=== PATIENT | female | born 1955 | race Caucasian/White ===

== ENCOUNTER 2018-01-08 05:28 | Inpatient (IN) | payer BC ==
[2018-01-03 11:38] LABS: BASOPHILS # (AUTO) 0.1 X10'3 (0-0.2); BASOPHILS % (AUTO) 1.2 % (0-1); EOSINOPHILS # (AUTO) 0.5 X10'3 (0-0.9); EOSINOPHILS % (AUTO) 6.1 % (0-6); LYMPHOCYTES # (AUTO) 2.6 X10'3 (1.1-4.8); LYMPHOCYTES % (AUTO) 32.4 % (21-51); MEAN CORPUSCULAR HEMOGLOBIN 29.8 PG (27.0-31.0); MEAN CORPUSCULAR HGB CONC 34.7 % (33.0-36.5); MEAN CORPUSCULAR VOLUME 86.1 FL (78-98); NEUTROPHILS # (AUTO) 3.9 X10'3 (1.8-7.7); NEUTROPHILS % (AUTO) 48.3 % (42-75); PRE OP HEMATOCRIT 38.5 % (35.0-45.0); PRE OP HEMOGLOBIN 13.3 g/dL (12.0-16.0); PRE OP PLATELET COUNT 369 X10'3 (140-440); RED BLOOD COUNT 4.47 X10'6 (4.20-5.60); RED CELL DISTRIBUTION WIDTH 12.8 % (11.5-14.5)
[2018-01-03 11:52] LABS: ALKALINE PHOSPHATASE 75 IU/L (46-116); BLOOD UREA NITROGEN 14 MG/DL (7-18); CALCIUM 9.2 MG/DL (8.5-10.1); CHLORIDE 101 MMOL/L (99-107); PRE OP ALT 19 U/L (30-65); PRE OP ANION GAP 9 (8-16); PRE OP AST 17 U/L (10-37); PRE OP BILIRUB, TOTAL 0.4 MG/DL (0.0-1.0); PRE OP GLUCOSE 96 MG/DL (70-104); PRE OP POTASSIUM 4.1 MMOL/L (3.4-5.1); PRE OP SODIUM 138 MMOL/L (135-145); TOTAL CARBON DIOXIDE 28.5 MMOL/L (24-32); eGFR 85 ML/MIN
[2018-01-08] VITALS (22 sets, daily range): BP systolic 83–143; BP diastolic 48–80
[~2018-01-08] VITALS: Ht 156.2 cm; Wt 81.7 kg
[~2018-01-08 05:28] MED LIST: ASPI81TA52 PO; CALC-1051 PO; CARV-50 PO; CHOL10002 PO; CYAN-19 PO; LEVO75TA PO; MAGN400C PO; MULT-38 PO; SODIUM CHLORIDE IV ONE; TRANEXAMIC ACID IV ONE; [UNRECOGNIZED DRUG - OTHER] IV ONE; cefazolin/dext.iso 2gm/100 ML IV ONE; ringers solution, lacted 1,000 ML IV SCH
[2018-01-08] MEDS ORDERED: DOCUMENT DATE & TIME OF BETA-BLOCKER PO ONE (05:30)
[2018-01-08] MEDS ORDERED: vancomycin inj 1,500 MG in normal saline 300ml IV soln IV ONE (05:30)
[2018-01-08] MEDS ORDERED: famotidine 20mg tablet PO ONE (05:30)
[2018-01-08] MEDS ORDERED: LIDOcaine 1% (10mg/ml) 2ml vial ONE (06:03)
[2018-01-08] MEDS ORDERED: tetracaine 1% (10mg/ml) pres. free inj. ONE (07:10)
[2018-01-08] MEDS ORDERED: MIDAZolam 1mg/ml 10ml vial ONE (07:13)
[2018-01-08] MEDS ORDERED: fentaNYL/PF 50MCG/1 ML 2ML syringe ONE (07:13)
[2018-01-08] MEDS ORDERED: morphine /PF 1mg/ml 10ml inj. ONE (07:13)
[2018-01-08] MEDS ORDERED: ringers solution, lacted 1,000 ML IV SCH (07:52)
[2018-01-08] MEDS ORDERED: morphine 4 MG/ML inj SYRINge IV PRN ×2 (07:55)
[2018-01-08] MEDS ORDERED: meperidine/PF 25mg/ml syringe IV PRN ×2 (07:55)
[2018-01-08] MEDS ORDERED: hydrALAZINE 20mg/ml inj. IV PRN (07:55)
[2018-01-08] MEDS ORDERED: labetalol 20mg/4ml (5mg/ml) syringe IV PRN (07:55)
[2018-01-08] MEDS ORDERED: ondansetron/PF 4mg/2ml inj IV PRN ×3 (07:55→09:55)
[2018-01-08] MEDS ORDERED: diphenhydrAMINE 50 mg/ml inj IV PRN (09:05)
[2018-01-08] MEDS ORDERED: magnesium hydroxide 30ml (MOM) UD suspension PO PRN (09:55)
[2018-01-08] MEDS ORDERED: acetaminophen 325mg tablet PO PRN (09:55)
[2018-01-08] MEDS ORDERED: bisacodyl 10mg suppository rectal RC PRN (09:55)
[2018-01-08] MEDS ORDERED: diphenhydrAMINE 25mg capsule PO PRN ×2 (09:55)
[2018-01-08] MEDS ORDERED: HYDROmorphone inj. 0.5 MG/0.5 ML DISP.SYRIN IV PRN (09:55)
[2018-01-08] MEDS ORDERED: HYDROmorphone 1 mg/ml syringe IV PRN (10:25)
[2018-01-08] MEDS ORDERED: NORMAL SALINE IV ONE (13:00)
[2018-01-08] MEDS ORDERED: TRANEXAMIC ACID IV ONE (13:00)
[2018-01-08] MEDS: potassium Cl 20mEq in NS 1,000 ML IV SCH ×2 (13:19→23:43)
[2018-01-08] MEDS: HYDROcodone/acetaminophen 10/325mg tab PO PRN ×2 (14:36→23:46)
[2018-01-08] MEDS: ketorolac trometh. 30mg/ml inj. IV SCH ×2 (14:39→19:47)
[2018-01-08] MEDS: ceFAZolin 1GM/D5W- ADD-VANTAGE 50 ML IV SCH ×2 (16:04→23:42)
[2018-01-08] MEDS ORDERED: aspirin 325mg tablet PO SCH (17:30)
[2018-01-08] MEDS: aspirin 81mg tab.chew PO SCH (19:47)
[2018-01-08] MEDS: carVEDilol 12.5mg tablet PO SCH (20:00)
[2018-01-08] MEDS ORDERED: vancomycin/NS 1 GM ADD-VANTAGE 250 ML IV SCH (20:00)
[2018-01-08] MEDS: sennosides 8.6mg tablet PO SCH (21:00)
[2018-01-09] MEDS: ketorolac trometh. 30mg/ml inj. IV SCH ×2 (02:05→08:13)
[2018-01-09 02:12] VITALS: BP 101/54
[2018-01-09] MEDS: HYDROcodone/acetaminophen 10/325mg tab PO PRN ×2 (05:12→20:26)
[2018-01-09] MEDS: potassium Cl 20mEq in NS 1,000 ML IV SCH ×3 (05:52→21:27)
[2018-01-09 06:00] VITALS: BP 111/65
[2018-01-09 06:54] LABS: BASOPHILS % (AUTO) 0.4 % (0-1); EOSINOPHILS # (AUTO) 0.3 X10'3 (0-0.9); HEMATOCRIT 29.3 % (35.0-45.0); HEMOGLOBIN 9.7 g/dl (12.0-16.0); LYMPHOCYTES # (AUTO) 1.9 X10'3 (1.1-4.8); LYMPHOCYTES % (AUTO) 15.8 % (21-51); MEAN CORPUSCULAR HEMOGLOBIN 29.5 PG (27.0-31.0); MEAN CORPUSCULAR VOLUME 89.4 FL (78-98); MEAN PLATELET VOLUME 7.6 FL (7.4-10.4); MONOCYTES # (AUTO) 1.1 X10'3 (0-0.9); MONOCYTES % (AUTO) 9.3 % (2-12); NEUTROPHILS # (AUTO) 8.4 X10'3 (1.8-7.7); NEUTROPHILS % (AUTO) 71.5 % (42-75); PLATELET COUNT 227 X10'3 (140-440); RED BLOOD COUNT 3.27 X10'6 (4.20-5.60); RED CELL DISTRIBUTION WIDTH 13.2 % (11.5-14.5); WHITE BLOOD COUNT 11.8 X10'3 (4.5-11.0)
[2018-01-09 07:17] LABS: ALANINE AMINOTRANSFERASE 13 U/L (12-78); ALBUMIN 2.7 G/DL (3.4-5.0); ALBUMIN/GLOBULIN RATIO 0.9 (1.1-1.5); ALKALINE PHOSPHATASE 51 IU/L (46-116); ANION GAP 9 (8-16); ASPARTATE AMINO TRANSFERASE 25 U/L (10-37); BILIRUBIN,TOTAL 0.5 MG/DL (0.1-1.0); BLOOD UREA NITROGEN 13 MG/DL (7-18); BUN/CREATININE RATIO 13.8 (6.6-38.0); CALCIUM 8.2 MG/DL (8.5-10.1); CHLORIDE 101 MMOL/L (99-107); CREATININE 0.94 MG/DL (0.40-0.90); GLUCOSE 132 MG/DL (70-104); POTASSIUM 4.2 MMOL/L (3.5-5.1); SODIUM 136 MMOL/L (135-145); TOTAL CARBON DIOXIDE 25.7 MMOL/L (24-32); TOTAL PROTEIN 5.6 G/DL (6.4-8.2); eGFR 60 ML/MIN
[2018-01-09] MEDS: aspirin 81mg tab.chew PO SCH ×2 (08:13→20:26)
[2018-01-09] MEDS: levoTHYROXINE 75mcg tablet PO SCH (08:13)
[2018-01-09] MEDS: carVEDilol 12.5mg tablet PO SCH ×2 (08:13→20:00)
[2018-01-09 10:00] VITALS: BP 98/51
[2018-01-09 14:00] VITALS: BP 104/51
[2018-01-09 17:00] VITALS: BP 106/42
[2018-01-09] MEDS: sennosides 8.6mg tablet PO SCH (20:27)
[2018-01-09 21:00] VITALS: BP 118/56
[2018-01-10] MEDS: HYDROcodone/acetaminophen 10/325mg tab PO PRN (05:33)
[2018-01-10 05:51] LABS: BASOPHILS % (AUTO) 0 % (0-1); EOSINOPHILS # (AUTO) 0.3 X10'3 (0-0.9); EOSINOPHILS % (AUTO) 1.9 % (0-6); HEMATOCRIT 27.9 % (35.0-45.0); HEMOGLOBIN 9.3 g/dl (12.0-16.0); LYMPHOCYTES # (AUTO) 1.4 X10'3 (1.1-4.8); MEAN CORPUSCULAR HEMOGLOBIN 29.4 PG (27.0-31.0); MEAN CORPUSCULAR HGB CONC 33.1 % (33.0-36.5); MEAN CORPUSCULAR VOLUME 88.9 FL (78-98); MEAN PLATELET VOLUME 7.6 FL (7.4-10.4); MONOCYTES # (AUTO) 1.5 X10'3 (0-0.9); NEUTROPHILS % (AUTO) 79.1 % (42-75); PLATELET COUNT 241 X10'3 (140-440); RED BLOOD COUNT 3.14 X10'6 (4.20-5.60); RED CELL DISTRIBUTION WIDTH 12.9 % (11.5-14.5); WHITE BLOOD COUNT 15.2 X10'3 (4.5-11.0)
[2018-01-10 06:00] VITALS: BP 140/67
[2018-01-10 06:12] LABS: ALANINE AMINOTRANSFERASE 10 U/L (12-78); ALBUMIN 2.4 G/DL (3.4-5.0); ALBUMIN/GLOBULIN RATIO 0.7 (1.1-1.5); ALKALINE PHOSPHATASE 55 IU/L (46-116); ANION GAP 8 (8-16); ASPARTATE AMINO TRANSFERASE 37 U/L (10-37); BILIRUBIN,TOTAL 0.4 MG/DL (0.1-1.0); BLOOD UREA NITROGEN 9 MG/DL (7-18); BUN/CREATININE RATIO 12.5 (6.6-38.0); CALCIUM 7.7 MG/DL (8.5-10.1); CHLORIDE 103 MMOL/L (99-107); CREATININE 0.72 MG/DL (0.40-0.90); GLUCOSE 131 MG/DL (70-104); POTASSIUM 4.3 MMOL/L (3.5-5.1); SODIUM 136 MMOL/L (135-145); TOTAL CARBON DIOXIDE 25.3 MMOL/L (24-32); TOTAL PROTEIN 5.7 G/DL (6.4-8.2); eGFR 82 ML/MIN
[2018-01-10] MEDS: levoTHYROXINE 75mcg tablet PO SCH (07:31)
[2018-01-10 07:32] VITALS: BP 136/69
[2018-01-10] MEDS: aspirin 81mg tab.chew PO SCH (07:32)
[2018-01-10] MEDS: carVEDilol 12.5mg tablet PO SCH (07:33)
[2018-01-10] MEDS ORDERED: HYDR-3972 PO (09:47)
[2018-01-10 10:17] VITALS: BP 109/53
== END 2018-01-10 11:20 | disposition home or self-care (01) | DRG 470 ==
LOC: PAS IN 05:28 → EDSTATUS 07:30 → ORTHO 4S 11:05
PROVIDERS: ADMIT Orthopaedic Surgery; ATTEND Orthopaedic Surgery
PROC: 0SRB06Z Replacement of Left Hip Joint with Oxidized Zirconium on Polyethylene Synthetic Substitute, Open Approach (ICD-10-PCS; principal; 2018-01-08 07:05)
DX: M16.12 Unilateral primary osteoarthritis, left hip (principal); D62 Acute posthemorrhagic anemia; E03.9 Hypothyroidism, unspecified; E66.9 Obesity, unspecified; E78.5 Hyperlipidemia, unspecified; E11.9 Type 2 diabetes mellitus without complications; I10 Essential (primary) hypertension; Z68.33 Body mass index [BMI] 33.0-33.9, adult; Z90.49 Acquired absence of other specified parts of digestive tract; Z90.710 Acquired absence of both cervix and uterus; Z79.899 Other long term (current) drug therapy
CPT/HCPCS: 36415; 80053; 84443; 85025; 85610; 85730; 86885; 86900; 86901; 86920; 87070; 97110; 97116; 97162; 97530; A6251; A6257; A7000; C1758; C1776; J0690; J1170; J1885; J2250; J2274; J2405; J3010; J3370; J3490; J7030; J7120

== ENCOUNTER 2019-09-16 13:43 | Outpatient (CLI) | payer MEDICARE, BC ==
[~2019-09-16 13:43] MED LIST changes: -ASPI81TA52 PO; -CALC-1051 PO; -CHOL10002 PO; -CYAN-19 PO; +HYDR-3972 PO; -MAGN400C PO; -MULT-38 PO; -SODIUM CHLORIDE IV ONE; -TRANEXAMIC ACID IV ONE; -[UNRECOGNIZED DRUG - OTHER] IV ONE; -cefazolin/dext.iso 2gm/100 ML IV ONE; -ringers solution, lacted 1,000 ML IV SCH
== END 2019-09-16 23:59 | disposition home or self-care (01) ==
LOC: VAS 13:43
PROVIDERS: ATTEND Internal Medicine Cardiovascular Disease
DX: I82.402 Acute embolism and thrombosis of unspecified deep veins of left lower extremity (principal); R60.0 Localized edema; M79.605 Pain in left leg
CPT/HCPCS: 93971

== ENCOUNTER 2019-11-11 05:27 | Inpatient (IN) | payer MEDICARE, BC ==
[2019-11-06 11:49] LABS: BASOPHILS # (AUTO) 0.1 X10'3 (0-0.2); BASOPHILS % (AUTO) 1.1 % (0-1); EOSINOPHILS # (AUTO) 0.4 X10'3 (0-0.9); LYMPHOCYTES # (AUTO) 2.7 X10'3 (1.1-4.8); LYMPHOCYTES % (AUTO) 29.3 % (21-51); MEAN CORPUSCULAR HEMOGLOBIN 29.3 PG (27.0-31.0); MEAN CORPUSCULAR HGB CONC 33.2 g/dL (33.0-36.5); MEAN CORPUSCULAR VOLUME 88.4 FL (78-98); MEAN PLATELET VOLUME 7.1 FL (7.4-10.4); MONOCYTES # (AUTO) 1.2 X10'3 (0-0.9); MONOCYTES % (AUTO) 13.5 % (2-12); NEUTROPHILS # (AUTO) 4.8 X10'3 (1.8-7.7); NEUTROPHILS % (AUTO) 52.1 % (42-75); PRE OP HEMOGLOBIN 13.6 g/dL (12.0-16.0); PRE OP PLATELET COUNT 336 X10'3 (140-440); RED BLOOD COUNT 4.64 X10'6 (4.20-5.60); RED CELL DISTRIBUTION WIDTH 13.8 % (11.5-14.5)
[2019-11-06 12:11] LABS: ALBUMIN 3.9 G/DL (3.4-5.0); ALBUMIN/GLOBULIN RATIO 0.9 (1.1-1.5); ALKALINE PHOSPHATASE 69 IU/L (46-116); BLOOD UREA NITROGEN 13 MG/DL (7-18); BUN/CREATININE RATIO 19.7 (6.6-38.0); CALCIUM 9.3 MG/DL (8.5-10.1); CHLORIDE 101 MMOL/L (99-107); CREATININE 0.66 MG/DL (0.40-0.90); HEMOGLOBIN A1C 6.9 % (4.5-6.2); PRE OP ALT 25 U/L (30-65); PRE OP ANION GAP 7 (8-16); PRE OP AST 36 U/L (10-37); PRE OP BILIRUB, TOTAL 0.4 MG/DL (0.0-1.0); PRE OP GLUCOSE 107 MG/DL (70-104); PRE OP SODIUM 136 MMOL/L (135-145); TOTAL PROTEIN 8.3 G/DL (6.4-8.2); eGFR 90 ML/MIN
[2019-11-11] VITALS (18 sets, daily range): BP systolic 113–150; BP diastolic 56–80
[~2019-11-11] VITALS: Ht 154.9 cm; Wt 84.9 kg
[~2019-11-11 05:27] MED LIST changes: +ACET-2119 PO; -HYDR-3972 PO
[2019-11-11] MEDS ORDERED: DOCUMENT DATE & TIME OF BETA-BLOCKER PO ONE (05:30)
[2019-11-11] MEDS ORDERED: clindamycin-Cleocin 900mg/D5W 50 ML IV ONE (05:30)
[2019-11-11] MEDS ORDERED: vancomycin 1,500 MG in NS 300ml IV soln IV ONE (05:30)
[2019-11-11] MEDS ORDERED: famotidine 20mg tablet PO ONE (05:30)
[2019-11-11] MEDS ORDERED: tranexamic acid 1gm/0.7% sal. 100 ML IV ONE (06:00)
[2019-11-11] MEDS ORDERED: ceFAZolin 1000mg inj ONE (06:53)
[2019-11-11] MEDS ORDERED: tetracaine 1% (10mg/ml) pres. free inj. ONE (07:08)
[2019-11-11] MEDS ORDERED: MIDAZolam 5mg/5ml vial ONE (07:22)
[2019-11-11] MEDS ORDERED: morphine /PF 1mg/ml 10ml inj. ONE (07:22)
[2019-11-11] MEDS ORDERED: BUPIVAcaine/dex-water/PF 7.5 mg/ml 2ml ampul ONE (07:25)
[2019-11-11] MEDS ORDERED: phenylephrine 10mg/ml inj. ONE (07:56)
[2019-11-11] MEDS ORDERED: propofol inj 20 ML IV ONE ×2 (07:56)
[2019-11-11] MEDS ORDERED: ePHEDrine 50MG/ML INJ. ONE ×2 (07:58→09:51)
[2019-11-11] MEDS ORDERED: naloxone 2mg/2ml inj 2 MG in normal saline 500ml IV soln 500 ML IV PRN (08:33)
[2019-11-11] MEDS ORDERED: ringers solution, lacted 1,000 ML IV SCH (08:33)
[2019-11-11] MEDS ORDERED: morphine 4 MG/ML inj SYRINge IV PRN (08:35)
[2019-11-11] MEDS ORDERED: meperidine/PF 25mg/ml syringe IV PRN ×3 (08:35)
[2019-11-11] MEDS ORDERED: morphine 2 MG/ML inj. syringe IV PRN (08:35)
[2019-11-11] MEDS ORDERED: proCHLORperazine 10 MG/2 ml inj IV PRN (08:35)
[2019-11-11] MEDS ORDERED: diphenhydrAMINE 50 mg/ml inj IV PRN (08:35)
[2019-11-11] MEDS ORDERED: acetaminophen 1,000mg/100ml IV 100 ML IV PRN (08:35)
[2019-11-11] MEDS ORDERED: ondansetron/PF 4mg/2ml inj IV PRN ×3 (08:35→10:20)
--- NOTE | 2019-11-11 10:08 | NUR ---
Received from OR via , accompanied by Anesthesiologist DR SAHU and report given by Anesthesiolgist. AWAKENS TO VOICE. VITALS STABLE. DRESSING DI. URVASHI PAIN. SENSATION AT HIPS. MENDOZA WITH CLEAR URINE.
[2019-11-11] MEDS ORDERED: HYDROmorphone 1 mg/ml syringe IV PRN (10:20)
[2019-11-11] MEDS ORDERED: acetaminophen 325mg tablet PO PRN (10:20)
[2019-11-11] MEDS ORDERED: bisacodyl 10mg suppository rectal RC PRN (10:20)
[2019-11-11] MEDS ORDERED: magnesium hydroxide 30ml (MOM) UD suspension PO PRN (10:20)
[2019-11-11] MEDS ORDERED: diphenhydrAMINE 25mg capsule PO PRN ×2 (10:20)
--- NOTE | 2019-11-11 11:08 | NUR ---
Report called to receiving nurse. Transferred via BED Belongings . Special Issues communicated to receiving nurse. AWAKE AND ORIENTED. VITALS STABLE. DRESSING DI. URVASHI PAIN. TO ORTHO RM 4006 AT THIS TIME.
--- NOTE | 2019-11-11 11:35 | NUR ---
Received report from Emily patient arrived to floor at 1115. Patient comfortable and post op vitals started.
[2019-11-11] MEDS: clindamycin 600mg/D5W 50ml 50 ML IV SCH ×2 (14:19→19:48)
[2019-11-11] MEDS: HYDROcodone/acetaminophen 10/325mg tab PO PRN ×2 (14:25→20:48)
--- NOTE | 2019-11-11 18:05 | NUR ---
Patient in room ORTHO 4006. I have received report from NEERU Beal and had the opportunity to ask questions and assume patient care.
--- NOTE | 2019-11-11 18:28 | NUR ---
Problems reprioritized. Patient report given, questions answered & plan of care reviewed with
[2019-11-11] MEDS: aspirin 81mg tab.chew PO SCH (19:48)
[2019-11-11] MEDS: potassium Cl 20mEq in NS 1,000 ML IV SCH ×2 (19:48→23:40)
[2019-11-11] MEDS: carVEDilol 12.5mg tablet PO SCH (19:50)
[2019-11-11] MEDS ORDERED: vancomycin/NS 1 GM ADD-VANTAGE 250 ML IV SCH (20:00)
[2019-11-11] MEDS: sennosides 8.6mg tablet PO SCH (20:48)
[2019-11-12] MEDS: clindamycin 600mg/D5W 50ml 50 ML IV SCH (01:31)
[2019-11-12 02:00] VITALS: BP 110/61
[2019-11-12] MEDS: HYDROcodone/acetaminophen 10/325mg tab PO PRN ×3 (04:57→17:54)
[2019-11-12 06:00] VITALS: BP 121/63
[2019-11-12 06:07] LABS: BASOPHILS % (AUTO) 0.3 % (0-1); EOSINOPHILS % (AUTO) 0.2 % (0-6); HEMOGLOBIN 11.6 g/dl (12.0-16.0); LYMPHOCYTES # (AUTO) 1.5 X10'3 (1.1-4.8); LYMPHOCYTES % (AUTO) 10.2 % (21-51); MEAN CORPUSCULAR HEMOGLOBIN 29.7 PG (27.0-31.0); MEAN CORPUSCULAR HGB CONC 33.1 g/dL (33.0-36.5); MEAN CORPUSCULAR VOLUME 89.7 FL (78-98); MEAN PLATELET VOLUME 7.3 FL (7.4-10.4); MONOCYTES # (AUTO) 1.8 X10'3 (0-0.9); MONOCYTES % (AUTO) 12.4 % (2-12); NEUTROPHILS % (AUTO) 76.9 % (42-75); PLATELET COUNT 268 X10'3 (140-440); RED CELL DISTRIBUTION WIDTH 13.6 % (11.5-14.5); WHITE BLOOD COUNT 14.4 X10'3 (4.5-11.0)
--- NOTE | 2019-11-12 06:25 | NUR ---
Problems reprioritized. Patient report given, questions answered & plan of care reviewed with NEERU Escobar.
[2019-11-12 06:45] LABS: ALANINE AMINOTRANSFERASE 17 U/L (12-78); ALBUMIN 3.1 G/DL (3.4-5.0); ALBUMIN/GLOBULIN RATIO 0.9 (1.1-1.5); ALKALINE PHOSPHATASE 51 IU/L (46-116); ANION GAP 8 (8-16); ASPARTATE AMINO TRANSFERASE 30 U/L (10-37); BILIRUBIN,TOTAL 0.8 MG/DL (0.1-1.0); BLOOD UREA NITROGEN 10 MG/DL (7-18); BUN/CREATININE RATIO 13.7 (6.6-38.0); CALCIUM 8.4 MG/DL (8.5-10.1); CHLORIDE 99 MMOL/L (99-107); CREATININE 0.73 MG/DL (0.40-0.90); GLUCOSE 134 MG/DL (70-104); POTASSIUM 4.1 MMOL/L (3.5-5.1); SODIUM 132 MMOL/L (135-145); TOTAL CARBON DIOXIDE 25.2 MMOL/L (24-32); TOTAL PROTEIN 6.5 G/DL (6.4-8.2); eGFR 80 ML/MIN
[2019-11-12] MEDS: carVEDilol 12.5mg tablet PO SCH ×2 (08:12→20:00)
[2019-11-12] MEDS: levoTHYROXINE 75mcg tablet PO SCH (08:12)
[2019-11-12] MEDS: aspirin 81mg tab.chew PO SCH ×2 (08:12→17:50)
[2019-11-12 10:00] VITALS: BP 126/59
--- NOTE | 2019-11-12 10:10 | NUR ---
Joint Replacement Consult: Pt seen by MONICA for written/verbal high protein ed w/ RD contact information provided s/p MICHAEL-R. Pt is agreeable to cottage cheese and fruit at lunch w/ yogurt at breakfasts; dietary notified. Addendum: 11/12/19 at [address] Amended: Links added.
[2019-11-12] MEDS: potassium Cl 20mEq in NS 1,000 ML IV SCH (13:20)
[2019-11-12 18:00] VITALS: BP 108/55
--- NOTE | 2019-11-12 18:05 | NUR ---
Patient in room ORTHO 4006. I have received report from NEERU Escobar and had the opportunity to ask questions and assume patient care.
--- NOTE | 2019-11-12 18:26 | NUR ---
Problems reprioritized. Patient report given, questions answered & plan of care reviewed with NEERU ESPINO.
[2019-11-12 20:15] VITALS: BP 97/56
[2019-11-12] MEDS: sennosides 8.6mg tablet PO SCH (20:19)
[2019-11-12 22:00] VITALS: BP 104/57
[2019-11-13] MEDS: potassium Cl 20mEq in NS 1,000 ML IV SCH (01:01)
[2019-11-13] MEDS: HYDROcodone/acetaminophen 10/325mg tab PO PRN ×3 (01:01→14:07)
[2019-11-13 06:00] VITALS: BP 110/55
--- NOTE | 2019-11-13 06:27 | NUR ---
Problems reprioritized. Patient report given, questions answered & plan of care reviewed with NEERU Escobar.
[2019-11-13 06:34] LABS: BASOPHILS % (AUTO) 0.3 % (0-1); EOSINOPHILS # (AUTO) 0.2 X10'3 (0-0.9); EOSINOPHILS % (AUTO) 1.2 % (0-6); HEMATOCRIT 30.5 % (35.0-45.0); HEMOGLOBIN 10.1 g/dl (12.0-16.0); LYMPHOCYTES # (AUTO) 1.7 X10'3 (1.1-4.8); MEAN CORPUSCULAR HEMOGLOBIN 29.6 PG (27.0-31.0); MEAN CORPUSCULAR HGB CONC 33.2 g/dL (33.0-36.5); MEAN CORPUSCULAR VOLUME 89.3 FL (78-98); MEAN PLATELET VOLUME 7.3 FL (7.4-10.4); MONOCYTES # (AUTO) 1.9 X10'3 (0-0.9); MONOCYTES % (AUTO) 13.7 % (2-12); NEUTROPHILS % (AUTO) 72.8 % (42-75); PLATELET COUNT 250 X10'3 (140-440); RED BLOOD COUNT 3.41 X10'6 (4.20-5.60); RED CELL DISTRIBUTION WIDTH 13.7 % (11.5-14.5); WHITE BLOOD COUNT 13.8 X10'3 (4.5-11.0)
--- NOTE | 2019-11-13 06:34 | NUR ---
Patient in room ORTHO 4006. I have received report from NEERU Driscoll and had the opportunity to ask questions and assume patient care.
[2019-11-13] MEDS: aspirin 81mg tab.chew PO SCH (07:16)
[2019-11-13] MEDS: carVEDilol 12.5mg tablet PO SCH (07:16)
[2019-11-13 07:17] LABS: ALANINE AMINOTRANSFERASE 16 U/L (12-78); ALBUMIN 2.6 G/DL (3.4-5.0); ALBUMIN/GLOBULIN RATIO 0.7 (1.1-1.5); ALKALINE PHOSPHATASE 46 IU/L (46-116); ANION GAP 7 (8-16); ASPARTATE AMINO TRANSFERASE 22 U/L (10-37); BILIRUBIN,TOTAL 0.5 MG/DL (0.1-1.0); BLOOD UREA NITROGEN 6 MG/DL (7-18); BUN/CREATININE RATIO 8.7 (6.6-38.0); CALCIUM 8.3 MG/DL (8.5-10.1); CHLORIDE 102 MMOL/L (99-107); CREATININE 0.69 MG/DL (0.40-0.90); GLUCOSE 134 MG/DL (70-104); POTASSIUM 4.2 MMOL/L (3.5-5.1); SODIUM 135 MMOL/L (135-145); TOTAL CARBON DIOXIDE 25.9 MMOL/L (24-32); TOTAL PROTEIN 6.2 G/DL (6.4-8.2); eGFR 85 ML/MIN
[2019-11-13] MEDS: levoTHYROXINE 75mcg tablet PO SCH (07:17)
[2019-11-13 10:00] VITALS: BP 104/50
[2019-11-13] MEDS ORDERED: HYDR-4353 PO (10:26)
[2019-11-13] MEDS ORDERED: ASPI-1265 PO (10:26)
--- NOTE | 2019-11-13 14:15 | NUR ---
WENDY DRESSING CHANGED, DC INSTRUCTIONS GIVEN, IV REMOVED, CANULA INTACT. ASSISTED PT TO BATHROOM AND THEN ASSISTED WITH DRESSING. PERSONAL BELONGINGS GATHERED AND PACKED. PT WHEELED DOWN TO IN PRIVATE VEHICLE IN STABLE CONDITION.
--- NOTE | 2019-11-14 10:33 | NUR ---
Case Management DC follow up: Spoke with pt via telephone. Status post: RTHA. reports: "feeling pretty good". Denies: acute/continuous cp, emergent SOB, acute general pain, resp distress, N/V, vertigo, sycope episodes, ONTIVEROS blurry vision, abd pain/distension, diarrhea, bladder pain, dysuria, polyuria, hematuria, retention, urgency, unexplained bleeding/bruising,fever. Still has not had BM, but will try OTC stool softner. Verbalizes understanding of s/s that would warrant -/ER visit for evaluation. Verbalizes understanding of Rx, why prescribed, resumes current Rx as ordered, denies ase r/t polypharmacy. Acknowledges need to schedule/keep follow up appts w/PCP/Emelina, pt will call to schedule. Dr Brito 11/19/19. Verbalizes compliance w/DC aftercare. Needs met, questions answered at DC, no further questions r/t post status DC at this time.
== END 2019-11-13 14:15 | disposition home or self-care (01) | DRG 470 ==
LOC: PAS IN 05:27 → UNDOADMIN 05:27 → EDSTATUS 07:30 → PAS IN 10:20 → ORTHO 4S 11:20 → PAS IN 11:20
PROVIDERS: ADMIT Orthopaedic Surgery; ATTEND Orthopaedic Surgery
PROC: 0SR90JZ Replacement of Right Hip Joint with Synthetic Substitute, Open Approach (ICD-10-PCS; principal; 2019-11-11 07:25)
DX: M16.11 Unilateral primary osteoarthritis, right hip (principal); D62 Acute posthemorrhagic anemia; I10 Essential (primary) hypertension; E03.9 Hypothyroidism, unspecified; Z03.818 Encounter for observation for suspected exposure to other biological agents ruled out; Z88.0 Allergy status to penicillin; Z88.8 Allergy status to other drugs, medicaments and biological substances
CPT/HCPCS: 36415; 80053; 82948; 83036; 84443; 85025; 85610; 85730; 86885; 86900; 86901; 86920; 87081; 97110; 97116; 97162; 97530; A4618; A7000; C1758; C1776; G0378; J0690; J2250; J2270; J2370; J2405; J2704; J3370; J3480; J3490; J7040; J7120